=== PATIENT | male | born 1940 | race Caucasian/White ===

== ENCOUNTER 2025-02-11 12:28 | Outpatient (CLI) | payer OTHER ==
--- NOTE | 2025-02-11 13:57 | RADIOLOGY REPORT ---
Exam: CT CT ABDOMEN History: CALCULUS OF KIDNEY HYDRONEPHROSIS W URETEROPELVIC Comparison Study: None TECHNIQUE: A digital equip tech image was obtained. During the uneventful, intravenous administration of c ontrast material, multislice data acquisition was obtained through the abdomen and pelvis. The data s et was subsequently reconstructed into axial images. Images were reviewed on a work station using a c ombination of axial and multiplanar using a variety of window levels and settings. Radiation Dose Information: CT Dose: CTDI volume is 25 mGy. Dose-length product is 250 mGy*cm FINDINGS: Lung Bases: No acute or significant lung base finding. Normal heart size. No pleural or pericardial effusion. Liver: The liver is normal in size. No focal lesions. Normal hepatic vascular enhancement. Gallbladder and Biliary Tree: Unremarkable Spleen: Unremarkable Pancreas: The pancreas is normal in appearance without focal lesions or abnormal enhancement. Adrenal Glands: Unremarkable Kidneys: Severe left hydronephrosis. Atrophic left kidney with cortical thinning. 2cm right renal mas s possibly noted. MRI renal mass protocol. Bladder: Unremarkable Bowel: The stomach is grossly normal in appearance. Small bowel and colon are normal in caliber and d istribution. The appendix is not visualized; however, no secondary findings of acute appendicitis id entified. Ascites: Absent Lymphadenopathy: No mesenteric, retroperitoneal or periportal lymphadenopathy. Abdominal Wall and Mesentery: Unremarkable. Vasculature: The visualized abdominal aorta is normal in size and caliber. Abdominal and pelvic vess els demonstrate normal enhancement. Pelvic Organs: Unremarkable Musculoskeletal: No aggressive focal bony lesions, acute fractures or dislocation. Soft tissues: Unremarkable. IMPRESSION: Severe left hydronephrosis. Atrophic left kidney with cortical thinning. 2cm right renal mass possibl y noted. MRI renal mass protocol. All CT scans at this medical facility are performed using dose modulation techniques as appropriate t o a performed exam including the following: Automated exposure control was utilized; adjustment of th e MA and/or KV according to patient size; and use of iterative reconstruction technique.
== END 2025-02-11 23:59 | disposition home or self-care (01) ==
LOC: RAD 12:28
PROVIDERS: ATTEND Urology
DX: N13.2 Hydronephrosis with renal and ureteral calculous obstruction (principal); Q62.11 Congenital occlusion of ureteropelvic junction; N26.1 Atrophy of kidney (terminal)
CPT/HCPCS: 74150